=== PATIENT | male | born 1980 | race African-American/Black ===

== ENCOUNTER 2019-03-31 00:02 | Emergency (ER) | payer OTHER ==
[~2019-03-31] VITALS: Ht 180.3 cm; Wt 93.0 kg
--- NOTE | 2019-03-31 00:25 | NUR ---
BIBS FOR C/O ABD PAIN X ONE MONTH. -N/V/D. ONGOING CONSTIPATION. REPORTED HAD A SMALL BM TODAY W." BRIGHT RED BLODO ON THE SURFACE".
--- NOTE | 2019-03-31 00:28 | NUR ---
AT THE BED SIDE
--- NOTE | 2019-03-31 00:43 | NUR ---
PT REFUSED IV LINE AND IV FLUID. LAMP TESTER AND INSPECTOR AT THE BED SIDE TO DRAW BLOOD,.
[2019-03-31 00:49] LABS: BASOPHILS % (AUTO) 0.8 % (0.0-2.0); EOSINOPHILS % (AUTO) 3.9 % (0.0-6.0); HEMATOCRIT 43 % (39-51); HEMOGLOBIN 14.4 g/dL (13.5-17.5); LYMPHOCYTES % (AUTO) 37.8 % (20.0-44.0); MEAN CORPUSCULAR HGB CONC 34 g/dl (31.0-36.0); MEAN CORPUSCULAR VOLUME 84 fL (80-96); MONOCYTES # (AUTO) 0.7 /CMM (0.1-1.30); MONOCYTES % (AUTO) 13.2 % (2.0-12.0); NEUTROPHILS # (AUTO) 2.3 /CMM (1.8-8.9); NEUTROPHILS % (AUTO) 44.3 % (43.0-81.0); PLATELET COUNT (AUTO) 172 /CMM (150-450); RED BLOOD CELL COUNT(AUTO) 5.11 MIL/uL (4.5-6.0); WHITE BLOOD COUNT (AUTO) 5.3 K/uL (4.3-11.0)
[2019-03-31] MEDS ORDERED: IV NS 0.9% 1,000 ML BAG IV ONE (01:00)
[2019-03-31 01:02] LABS: CALCIUM, SERUM 8.9 mg/dL (8.5-10.1); CREATININE 1.3 mg/dL (0.6-1.3); POTASSIUM 4.3 mmol/L (3.5-5.1)
[2019-03-31 01:06] LABS: ALBUMIN 3.7 g/dL (3.4-5.0); BILIRUBIN,DIRECT 0.1 mg/dL (0.0-0.2); BILIRUBIN,TOTAL 0.3 mg/dL (0.2-1.0); TOTAL PROTEIN, SERUM 6.9 g/dL (6.4-8.2)
--- NOTE | 2019-03-31 01:35 | NUR ---
Patient is resting comfortably in bed with eyes closed. Easily aroused. VSS
[2019-03-31 02:40] VITALS: BP 119/66
--- NOTE | 2019-03-31 02:40 | NUR ---
Patient discharged to home in stable condition. Rx and Written and verbal after care instructions given. Patient verbalizes understanding of instruction.
== END 2019-03-31 02:41 | disposition home or self-care (01) ==
LOC: ER 00:12
DX: R10.9 Unspecified abdominal pain (principal)
CPT/HCPCS: 36415; 80048-TC; 80076-TC; 83690-TC; 85025-TC

== ENCOUNTER 2020-03-26 23:52 | Emergency (ER) | payer OTHER ==
[~2020-03-26] VITALS: Ht 180.3 cm; Wt 90.7 kg
[2020-03-27] MEDS ORDERED: KETOROLAC TROMETHAMINE 15 MG/ML VIAL ONE (00:23)
[2020-03-27] MEDS: KETOROLAC TROMETHAMINE INJ 30 MG/ML VIAL IV ONE (00:38)
[2020-03-27 00:42] LABS: BASOPHILS % (AUTO) 0.8 % (0.0-2.0); EOSINOPHILS % (AUTO) 2.5 % (0.0-6.0); HEMATOCRIT 46 % (39-51); HEMOGLOBIN 15.4 g/dL (13.5-17.5); LYMPHOCYTES # (AUTO) 1.8 /CMM (0.8-4.8); LYMPHOCYTES % (AUTO) 28.9 % (20.0-44.0); MEAN CORPUSCULAR HGB CONC 34 g/dl (31.0-36.0); MEAN CORPUSCULAR VOLUME 83 fL (80-96); MONOCYTES # (AUTO) 0.7 /CMM (0.1-1.30); MONOCYTES % (AUTO) 10.5 % (2.0-12.0); NEUTROPHILS # (AUTO) 3.6 /CMM (1.8-8.9); NEUTROPHILS % (AUTO) 57.3 % (43.0-81.0); PLATELET COUNT (AUTO) 177 /CMM (150-450); RED BLOOD CELL COUNT(AUTO) 5.52 MIL/uL (4.5-6.0); WHITE BLOOD COUNT (AUTO) 6.3 K/uL (4.3-11.0)
--- NOTE | 2020-03-27 00:44 | NUR ---
PATIENT CAME TO ER BED 9 C/O MIDEPIGASTRIC SHARP PAIN NON-RADIATING FOR ABOU 2 WEEKS. PATIENT STATES THAT THIS PAIN HAS BEEN CHRONIC AND IS UNBEARABLE TONIGHT.PATIENT IS AAOX4. NO SOB .BREATHING EVENLY AND UNLABORED ON ROOM AIR. CONNECTED TO THE MONITOR.
[2020-03-27 00:54] LABS: CALCIUM, SERUM 9.3 mg/dL (8.5-10.1); CREATININE 1.3 mg/dL (0.6-1.3); POTASSIUM 3.9 mmol/L (3.5-5.1)
[2020-03-27 01:00] LABS: ALBUMIN 3.9 g/dL (3.4-5.0); BILIRUBIN,DIRECT 0.2 mg/dL (0.0-0.2); BILIRUBIN,TOTAL 0.8 mg/dL (0.2-1.0); TOTAL PROTEIN, SERUM 7.9 g/dL (6.4-8.2)
--- NOTE | 2020-03-27 01:04 | NUR ---
ULTRASOUND AT BEDSIDE
--- NOTE | 2020-03-27 02:17 | NUR ---
Patient discharged to home in stable condition. Written and verbal after care instructions given. Patient verbalizes understanding of instruction.
[2020-03-27 02:18] VITALS: BP 136/77
== END 2020-03-27 02:18 | disposition home or self-care (01) ==
LOC: ER 03-27
DX: R10.11 Right upper quadrant pain (principal)
CPT/HCPCS: 36415; 76705-TC; 80048-TC; 80076-TC; 83690-TC; 85025-TC; J1885

== ENCOUNTER 2023-03-03 04:13 | Emergency (ER) | payer OTHER ==
[~2023-03-03] VITALS: Ht 180.3 cm; Wt 90.7 kg
[2023-03-03 04:35] VITALS: BP 133/71; TEMP 98
[2023-03-03] MEDS ORDERED: IBUPROFEN 600 MG TABLET ONE (05:29)
[2023-03-03] MEDS ORDERED: IBUPROFEN 600 MG TABLET PO ONE (05:30)
[2023-03-03] MEDS ORDERED: IBUP-1955 PO (05:32)
[2023-03-03] MEDS ORDERED: AMOX500T2 PO (05:32)
[2023-03-03] MEDS ORDERED: OXYC-128 PO ×3 (05:32→05:37)
[2023-03-03 05:44] VITALS: O2SAT 97
== END 2023-03-03 05:44 | disposition home or self-care (01) ==
LOC: IVT 04:21
DX: K08.89 Other specified disorders of teeth and supporting structures (principal); Z79.899 Other long term (current) drug therapy; Z60.2 Problems related to living alone